=== PATIENT | male | born 1965 | race Caucasian/White ===

== ENCOUNTER 2016-09-04 18:17 | Emergency (ER) | payer BC ==
[~2016-09-04] VITALS: Ht 182.9 cm; Wt 96.3 kg
--- OUTSIDE RECORDS SUMMARY | 2016-09-04 18:22 | XMS REPORT | Summary of Care ---
Author Author Linda Franco Organization Unknown Address [address] [place], [place] [id number] Phone Unavailable Care Team Providers Care Account Management Assistant Name Role Phone Linda Franco Unavailable Unavailable No Assigned PCP-Pt Confirmed Unavailable Unavailable Unavailable Unavailable Functional Status Name Dates Details Functional status health issues are not documented Status: Name Dates Details Cognitive status health issues are not documented Status: Problems Name Dates Details Acute sinusitis (461.9, J01.90) Status: Active Fever (780.60, R50.9) Status: Active Influenza A (487.1, J10.1) Status: Active Medications Name Dates Details Oseltamivir Phosphate 75 MG Oral Capsule TAKE 1 CAPSULE TWICE DAILY WITH MEALS. Quantity: 10 Refills: 0 Linda Franco Start 16-Jun-2016 Active Allergies and Adverse Reactions Name Dates Details No Known Drug Allergies (Allergy) Status: Active Past Medical History Name Dates Details History of Known health problems: none (V49.89, Z78.9) Status: Resolved Procedures Procedure Dates Details INFLUENZA A/B ANTIGEN 5320 Ordered: 16-Jun-2016 Immunization Name Dates Details Immunizations not documented Family History Name Dates Details Family history of cardiac disorder (V17.49, Z82.49) Status: Active Social History Name Dates Details - Status: Name Dates Details Former smoker Vital Signs Date Test Result Details 16-Jun-2016 13:38 BP Systolic 120 mm[Hg] Status: Comments: Location: ; Position: BP Diastolic 74 mm[Hg] Status: Comments: Location: ; Position: Temperature 102.2 f Status: Comments: Method: Heart Rate 77 /min Status: Comments: Location: ; Weight 212.2 lb Status: Physical Findings 97 Status: Comments: O2 Saturation 22-May-2016 17:25 BP Systolic 132 mm[Hg] Status: Comments: Location: ; Position: BP Diastolic 90 mm[Hg] Status: Comments: Location: ; Position: Temperature 98.1 f Status: Comments: Method: Heart Rate 68 /min Status: Comments: Location: ; Weight 214.25 lb Status: Physical Findings 96 Status: Comments: O2 Saturation Results Date Description Value Details 22-May-2016 17:40 STREPTOCOCCUS SCREEN WITH CULTURE 5040 Comments: *Culture in progress*Testing performed by [facility], [address] [address] Testing performed by [facility], [address] [place] [address] *STREPTOCOCCUS SCREEN NEGATIVE for Streptococcus pyogenes Range: NEGATIVE for Streptococcus pyogenes 26-May-2016 10:11 THROAT CULTURE [id number] Comments: [employer] performed at: [facility] [[email or web address]] [email or web address] [place], [address] [place], [address], [employer]: Nikolai Atkins D.O., MPHQuest Collection Date/Time: [id number] Results Received Date/Time: [id number] Reported Date/Time: FASTING:NO CULTURE, THROAT SEE NOTE Comments: CULTURE, THROAT MICRO NUMBER: [id number] TEST STATUS: FINAL SPECIMEN SOURCE: THROAT SPECIMEN QUALITY: ADEQUATE RESULT: No oropharyngeal pathogens recovered.[NC] ----- Plan of Care Name Dates Details Planned Observations Planned Goals not documented Interventions Provided Medication ChangesOseltamivir Phosphate 75 MG Oral Capsule - Start Instructions Name Dates Details Instructions not documented Encounters Appointment; Felicia Mulligan Encounter Diagnosis: Problem not documented On 22-May-2016 17:15
[2016-09-04 18:59] VITALS: BP 142/90
== END 2016-09-04 19:01 | disposition home or self-care (01) ==
LOC: ED 18:20
DX: N20.1 Calculus of ureter (principal)
CPT/HCPCS: 99281; 99282